=== PATIENT | female | born 1995 | race African-American/Black ===

== ENCOUNTER 2018-12-13 09:28 | Emergency (ER) | payer MEDICAID ==
[~2018-12-13] VITALS: Ht 172.7 cm; Wt 65.8 kg
[2018-12-13 09:36] VITALS: BP 134/77
--- NOTE | 2018-12-13 09:41 | NUR ---
PT AMB TO BED 6 WITH STEADY GAIT
--- NOTE | 2018-12-13 09:49 | NUR ---
PT BIB SELF WITH C/O LOWER BACK PAIN, PELVIC PAIN. LMP 09/18/18. DENIES DYSURIA. WAS AT [facility] 3 WEEKS AGO AND WAS GIVEN ANITIBIOTICS, NO RELIEF. CANT RECALL ANTIBIOTICS NAME. PT STATES TO HAVE SOME SPOTTING THREE DAYS AGO AND STOPPED. BURNING SENSATION WHILE PEEING. URINE SMPL COLLECETED. ER MD TO SEE THE PATIENT. PMH-ANXIETY AND PANIC ATTACKS. DENIES ANY ALLERGIC TO MEDICATION.
[2018-12-13] MEDS ORDERED: IBUPROFEN 800 MG TAB PO ONE (10:10)
[2018-12-13] MEDS ORDERED: cefTRIAXone 250 MG in LIDOCAINE MPF 1% - 5 mL VIAL 0.9 ML IM ONE (10:10)
[2018-12-13] MEDS ORDERED: AZITHROMYCIN 250 MG TAB PO ONE (10:10)
[2018-12-13 10:34] LABS: BASOPHILS # (AUTO) 0.1 K/uL (0.00-0.22); BASOPHILS % (AUTO) 1.1 % (0.0-2.0); EOSINOPHILS # (AUTO) 0.1 K/uL (0-0.4); EOSINOPHILS % (AUTO) 2.4 % (0.0-4.0); HEMATOCRIT 38.6 % (36-48); HEMOGLOBIN 13.4 g/dL (12.0-16.0); LYMPHOCYTES # (AUTO) 2.3 K/uL (2.5-16.5); LYMPHOCYTES % (AUTO) 37.9 % (20.5-51.1); MEAN CORPUSCULAR HEMOGLOBIN 28 pg (27-31); MEAN CORPUSCULAR HGB CONC 35 g/dL (33-37); MEAN CORPUSCULAR VOLUME 79.9 fL (80-94); MONOCYTES # (AUTO) 0.6 K/uL (0.8-1.0); MONOCYTES % (AUTO) 9.6 % (1.7-9.3); NEUTROPHILS # (AUTO) 2.9 K/uL (1.8-7.7); PLATELET COUNT (AUTO) 261 K/uL (140-450); RED BLOOD CELL COUNT(AUTO) 4.83 MIL/uL (4.20-5.40); RED CELL DISTRIBUTION WIDTH 14.1 % (11.6-13.7)
[2018-12-13 10:34] LABS: APPEARANCE,URINE CLEAR (CLEAR); BILIRUBIN,URINE NEGATIVE (NEGATIVE); BLOOD, URINE TRACE-I (NEGATIVE); COLOR,URINE YELLOW (YELLOW); LEUKOCYTE ESTERASE ,URINE NEGATIVE (NEGATIVE); NITRITE, URINE NEGATIVE (NEGATIVE); UGLUCOSE NEGATIVE (NEGATIVE)
[2018-12-13 10:50] LABS: WBC,URINE 0-5 /HPF (0-5)
[2018-12-13 10:50] LABS: ANION GAP 10.6 (8-16); CARBON DIOXIDE 31.2 mmol/L (21-32); CREATININE 0.9 mg/dL (0.6-1.3); POTASSIUM 3.8 mmol/L (3.5-5.1)
[2018-12-13 10:52] LABS: ALBUMIN 3.8 g/dL (3.4-5.0); TOTAL BILIRUBIN 0.6 mg/dL (0.0-1.0)
[2018-12-13] MEDS ORDERED: metroNIDAZOLE 250 MG TAB PO ONE (11:25)
[2018-12-13] MEDS ORDERED: FLUCONAZOLE 100 MG TAB PO ONE (11:25)
[2018-12-13 12:04] VITALS: BP 134/77
--- NOTE | 2018-12-13 12:04 | NUR ---
Patient discharged with v/s stable. Written and verbal after care instructions given and explained. Patient alert, oriented and verbalized understanding of instructions. Ambulatory with steady gait. All questions addressed prior to discharge. ID band removed. Patient advised to follow up with PMD. Rx of FLAGYL AND IBUPROFEN given. Patient educated on indication of medication including possible reaction and side effects. Opportunity to ask questions provided and answered.
[2018-12-15 06:11] LABS: CHLAMYDIA TRACHOMATIS AMP DNA Negative (Negative)
== END 2018-12-13 12:04 | disposition home or self-care (01) ==
LOC: MED 09:28
DX: N89.8 Other specified noninflammatory disorders of vagina (principal); F17.210 Nicotine dependence, cigarettes, uncomplicated; Z71.6 Tobacco abuse counseling; Z98.890 Other specified postprocedural states
CPT/HCPCS: 36415; 76830; 80053; 81001; 81025; 83690; 85025; 87491; 96372; 99284; J0696; J2001; Q0092

== ENCOUNTER 2018-12-13 16:16 | Emergency (ER) | payer MEDICAID ==
[~2018-12-13] VITALS: Ht 175.3 cm; Wt 65.3 kg
--- NOTE | 2018-12-13 16:22 | NUR ---
CALLED PTS NAME. STATES SHE IS CONSIDERING GOING TO ANOTHER HOSPITAL. NO TRIAGE COMPLETED AT THIS TIME.
--- NOTE | 2018-12-13 16:45 | NUR ---
PT CONTINUES TO WAIT IN ER LOBBY. STATES SHE DOES NOT WANT TO BE SEEN
--- NOTE | 2018-12-13 16:45 | NUR ---
PT CONTINUES TO WAIT IN ER LOBBY. STATES SHE DOES NOT WANT TO BE SEEN
[2018-12-13 16:58] VITALS: BP 125/84
--- NOTE | 2018-12-13 17:04 | NUR ---
PT TO WAIT IN ER LOBBY. VSS. PT [id number]. 99% ON RA. NO ACESSORY MUSCLE USE OR DISTRESS NOTED.
--- NOTE | 2018-12-13 17:40 | NUR ---
PT LWBS AT THIS TIME
== END 2018-12-13 17:40 | disposition left against medical advice (07) ==
LOC: MED 16:16
DX: N89.8 Other specified noninflammatory disorders of vagina (principal)

== ENCOUNTER 2018-12-14 16:00 | Emergency (ER) | payer MEDICAID ==
[~2018-12-14] VITALS: Ht 165.1 cm; Wt 66.7 kg
[2018-12-14 16:09] VITALS: BP 142/74
--- NOTE | 2018-12-14 16:32 | NUR ---
SEEN IN OUR ER TWICE YESTERDAY---MULTIPLE VAGUE COMPLAINTS TODAY C/O ANTERIOR CHEST WALL PAIN UPON DEEP INSPIRATION DENIES RECENT INJURY/TRAUMA, NO ACCESSORY MUSCLE USE NOTED, FULL CLEAR SPEECH--- NO COUGH OR CONGESTION NOTED AT THIS TIME---- ALSO STATES POSTERIOR NECK PAIN --FULL ROM NOTED
[2018-12-14] MEDS ORDERED: KETOROLAC 15 MG/ML VIAL IVP ONE (16:40)
[2018-12-14] MEDS ORDERED: LORazepam 2 MG/ML VIAL IVP ONE (16:40)
[2018-12-14] MEDS ORDERED: NACL 0.9% 1,000 ML IV SCH (16:40)
--- NOTE | 2018-12-14 16:53 | NUR ---
Ruth RN, Lisa emt helping pt with ekg and iv start---they explained to pt MD has ordered some meds for pain and fluids and an EKG to r/o any immediate heart issues pt refused stated she came yesterday but wanted to be seen in [place] instead today.
--- NOTE | 2018-12-14 16:58 | NUR ---
provided phone for pt to call her ride---
--- NOTE | 2018-12-14 16:58 | NUR ---
PATIENT LEFT WITHOUT BEING SEEN BY DR. MONROE. NO FURTHER CARE PROVIDED FOR PATIENT.
== END 2018-12-14 16:58 | disposition left against medical advice (07) ==
LOC: MED 16:00
DX: R51 Headache (principal); R07.89 Other chest pain; M54.2 Cervicalgia; Z53.21 Procedure and treatment not carried out due to patient leaving prior to being seen by health care provider
CPT/HCPCS: J1885; J2060

== ENCOUNTER 2019-02-05 03:45 | Emergency (ER) | payer MEDICAID ==
[~2019-02-05] VITALS: Ht 165.1 cm; Wt 65.8 kg
[2019-02-05 03:50] VITALS: BP 126/91
--- NOTE | 2019-02-05 03:50 | NUR ---
PT AMBULATES TO BED 7
--- NOTE | 2019-02-05 03:51 | NUR ---
PRESENTED TO ED ZACKERY AMS. C/O HYPOGLYCEMIA. BLOOD SUGAR 65. PT STATES SHE TOOK (PINK) ERECTILE DYSFUNCTION PILL EARLIER TODAY. GIVEN GLUCOSE UPON ARRIVAL IN AMBULANCE. BLOOD GLUCOSE 104. VITALS STABLE. HEADACHE 3/10 PAIN. STATES SHE FEELS WEAK. LMP SEPTEMBER 2018. VACCINES UTD. HX DM, HTN, ANEMIA. RX STATES DOES NOT TAKE MEDS. ALLERGIES PENICILLIN, BANANAS, APPLES, STRAWBERRIES.
[2019-02-05] MEDS ORDERED: NACL 0.9% 500 ML IV ONE (04:12)
[2019-02-05 04:34] LABS: BASOPHILS % (AUTO) 0.8 % (0.0-2.0); EOSINOPHILS # (AUTO) 0.2 K/uL (0-0.4); EOSINOPHILS % (AUTO) 3.7 % (0.0-4.0); HEMATOCRIT 38.8 % (36-48); HEMOGLOBIN 13.5 g/dL (12.0-16.0); LYMPHOCYTES # (AUTO) 2.9 K/uL (2.5-16.5); LYMPHOCYTES % (AUTO) 49.4 % (20.5-51.1); MEAN CORPUSCULAR HEMOGLOBIN 28 pg (27-31); MEAN CORPUSCULAR HGB CONC 35 g/dL (33-37); MEAN CORPUSCULAR VOLUME 79.5 fL (80-94); MONOCYTES # (AUTO) 0.4 K/uL (0.8-1.0); MONOCYTES % (AUTO) 7.3 % (1.7-9.3); NEUTROPHILS # (AUTO) 2.2 K/uL (1.8-7.7); NEUTROPHILS % (AUTO) 38.8 % (42.2-75.2); PLATELET COUNT (AUTO) 245 K/uL (140-450); RED BLOOD CELL COUNT(AUTO) 4.88 MIL/uL (4.20-5.40); RED CELL DISTRIBUTION WIDTH 13.5 % (11.6-13.7); WHITE BLOOD COUNT (AUTO) 5.8 K/uL (4.8-10.8)
[2019-02-05 04:52] LABS: ALBUMIN 3.6 g/dL (3.4-5.0); ANION GAP 13.2 (8-16); CARBON DIOXIDE 24.6 mmol/L (21-32); CREATININE 0.8 mg/dL (0.6-1.3); TOTAL BILIRUBIN 0.3 mg/dL (0.0-1.0)
[2019-02-05 04:59] LABS: POTASSIUM 2.8 mmol/L (3.5-5.1)
--- NOTE | 2019-02-05 05:03 | NUR ---
RAD AT BEDSIDE
[2019-02-05] MEDS ORDERED: POTASSIUM CHLORIDE 10 MEQ TABER PO ONE (05:05)
--- NOTE | 2019-02-05 07:21 | NUR ---
Received report from BENITA Acosta. Transfer of care at this time.
--- NOTE | 2019-02-05 08:30 | NUR ---
BS 85. Dr. Moreira made aware and ordered for breakfast to be given. FNS called and spoke with Concepcion and food will be brought over shortly.
--- NOTE | 2019-02-05 08:52 | NUR ---
Patient appears to be resting comfortably in bed. Vital Signs within normal limits. Respirations even and unlabored.
[2019-02-05 11:28] VITALS: BP 104/54
--- NOTE | 2019-02-05 11:29 | NUR ---
Patient discharged with v/s stable. Written and verbal after care instructions given and explained. Patient verbalized understanding. Ambulatory with steady gait. All questions addressed prior to discharge. Advised to follow up with PMD.
== END 2019-02-05 11:29 | disposition home or self-care (01) ==
LOC: MED 03:45
DX: R07.9 Chest pain, unspecified (principal); R19.7 Diarrhea, unspecified; R11.2 Nausea with vomiting, unspecified; Z88.0 Allergy status to penicillin; Z91.018 Allergy to other foods
CPT/HCPCS: 36415; 71045; 80053; 81025; 82948; 83690; 84484; 85025; 93005; 96360; 99284; J7030; Q0092